=== PATIENT | female | born 2000 ===

== ENCOUNTER 2024-01-07 16:11 | Outpatient (REF) | payer MEDICAID, SELFPAY ==
[2024-01-09 15:20] LABS: Chlamydia Result Negative (Negative); GC Result Negative (Negative)
== END 2024-01-07 16:12 | disposition home or self-care (01) ==
LOC: LBN 16:11
PROVIDERS: Visit Provider Obstetrics & Gynecology
DX: Z11.3 Encounter for screening for infections with a predominantly sexual mode of transmission (principal)
CPT/HCPCS: 87491; 87591